=== PATIENT | female | born 1995 | race Caucasian/White ===

== ENCOUNTER 2018-06-11 12:54 | Emergency (ER) | payer OTHER ==
--- NOTE | 2018-06-11 13:26 | UC ---
Skin Complaint HPI - HPI Summary HPI Summary: 22 yo female presents with cold sores. She tells me that when she was younger she had issues with cold sores around her mouth that would blister and be painful for weeks to months at a time. She has not been effected by this much in recent years, but she developed a cold sore about 1 month ago at the superior portion of the philtrum that has been persisting since. Mild painful. Over the last 2-3 days has seemed to scab a little, but still drains clear fluid. Denies fever or chills. - History of Current Complaint Time Seen by Provider: 06/11/18 13:25 Stated Complaint: SKIN ISSUE Hx Obtained From: Patient Onset/Duration: Gradual Onset Onset Severity: Mild Current Severity: Mild Pain Intensity: 2 Pain Scale Used: 0-10 Numeric - Allergy/Home Medications Allergies/Adverse Reactions: Allergies Allergy/AdvReac Type Severity Reaction Status Date / Time No Known Allergies Allergy Verified 06/11/18 13:31 Home Medications: Home Medications Levonorgestrel (Iud) [Mirena IUD] 20 mcg IU 06/11/18 [History] Review of Systems All Other Systems Reviewed And Are Negative: Yes Constitutional: Positive: Negative Skin: Positive: Other - Cold sore face Eyes: Positive: Negative ENT: Positive: Negative Respiratory: Positive: Negative Cardiovascular: Positive: Negative Neurovascular: Positive: Negative Neurological: Positive: Negative Psychological: Positive: Negative PMH/Surg Hx/FS Hx/Imm Hx - Additional Past Medical History Additional PMH: None - Surgical History Surgical History: None - Family History Known Family History: Positive: None - Social History Occupation: Student Lives: With Family Alcohol Use: Occasionally Substance Use Type: None Smoking Status (MU): Never Smoked Tobacco Physical Exam - Summary Physical Exam Summary: GENERAL: NAD. WDWN. No pain distress. SKIN: Superior portion of the philtrum there is a 5mm cluster of 6-7 <2mm clear blisters with scant yellow scabbing. Mild erythematous bases. NTTP. NECK: Supple. Nontender. No lymphadenopathy. CHEST: No accessory muscle use. Breathing comfortably and in no distress. CV: Pulses intact. Cap refill <2seconds NEURO: Alert. PSYCH: Age appropriate behavior. Triage Information Reviewed: Yes Vital Signs: Vital Signs: Temp Pulse Resp BP Pulse Ox 98.1 F 90 14 129/86 100 06/11/18 13:27 06/11/18 13:27 06/11/18 13:27 06/11/18 13:27 06/11/18 13:27 Vital Signs Reviewed: Yes Course/Dx - Course Course Of Treatment: Cold sore nose. Will try her with acyclovir cream and have her f/u if symptoms persist. - Diagnoses Provider Diagnoses: Cold sore nose Discharge - Sign-Out/Discharge Documenting (check all that apply): Patient Departure All imaging exams completed and their final reports reviewed: No Studies - Discharge Plan Condition: Stable Disposition: HOME Prescriptions: Acyclovir [Acyclovir 5% TOPICAL] 15 gm TOPICAL QID #1 tube Patient Education Materials: Oral Herpes Simplex Virus Infections (ED) Referrals: No Primary Care Phys,NOPCP [Primary Care Provider] - Additional Instructions: If you develop a fever, shortness of breath, chest pain, new or worsening symptoms - please call your PCP or go to the ED. - Billing Disposition and Condition Condition: STABLE Disposition: Home
[2018-06-11 13:31] VITALS: BP 129/86
== END 2018-06-11 13:50 | disposition home or self-care (01) ==
LOC: UCEAST 12:54
DX: B00.1 Herpesviral vesicular dermatitis (principal)
CPT/HCPCS: 99202; G0463